=== PATIENT | male | born 1950 | race Caucasian/White ===

== ENCOUNTER 2017-12-19 16:16 | Emergency (ER) | payer MEDICARE, BC, OTHER ==
[~2017-12-19 16:16] MED LIST: Iopamidol 370 76% 100 ML VIAL ONE; Sodium Chloride 0.9% 1,000 ML BAG ONE; Sodium Chloride Irrig Solution 250 ML BOT ONE
[2017-12-19 16:40] LABS: #Basophils 0.1 thou/uL (0.0-0.2); #Eosinphils 0.1 thou/uL (0.0-0.7); #Lymphocytes 1.6 thou/uL (1.20-3.40); #Monocytes 0.6 thou/uL (0.11-0.59); %Basophils 1.1 % (0.0-1.0); %Eosinophils 1.3 % (0.0-10.0); %Lymphocytes 21.3 % (21.0-51.0); %Monocytes 8.5 % (0.0-10.0); %Neutrophils 67.9 % (42.0-75.0); Mean Corpuscular HGB CONC 34.7 g/dL (32.0-36.0); Mean Corpuscular Hemoglobin 33.2 pg (27.0-31.0); Mean Corpuscular Volume 95.6 fl (80.0-94.0); Mean Platelet Volume 9.1 fL (7.4-10.4); Platelet Count 162 thou/uL (130-400); RBC Distribution Width 11.9 % (11.5-14.5); Red Blood Cell (RBC) Count 4.83 mill/uL (4.70-6.10); White Blood Cell (WBC) Count 7.4 thou/uL (4.8-10.8)
[2017-12-19 16:44] LABS: INR-International Normal Ratio 0.9; PTT 23.5 SEC (22.9-36.1); Prothrombin Time 12.6 SEC (12.0-14.7)
[2017-12-19 16:55] LABS: ALT (SGPT) 20 U/L (8-55); AST (SGOT) 19 U/L (5-34); Albumin 4.2 g/dL (3.4-4.8); Alcohol Less than 10 mg/dL (Less than 10); Alkaline Phosphatase 72 U/L (40-150); Anion Gap 19 mmol/L (10-20); BUN (Urea Nitrogen) 18 mg/dL (8.4-25.7); Bilirubin, Total 0.5 mg/dL (0.2-1.2); Calc. Creatinine Clearance 0 mL/min (70-130); Calcium 9.6 mg/dL (7.8-10.44); Carbon Dioxide 20 mmol/L (23-31); Chloride 106 mmol/L (98-107); Estimated GFR-MDRD 77; Globulin 2.5 g/dL (2.4-3.5); Glucose 98 mg/dL (80-115); Lipase 10 U/L (8-78); Potassium 3.8 mmol/L (3.5-5.1); Protein, Total 6.7 g/dL (5.8-8.1); Sodium 141 mmol/L (136-145)
[2017-12-19] MEDS ORDERED: Lidocaine 2% w/Epinephrine 1:200K 20 ML VIAL ONE (18:39)
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
[2017-12-19] MEDS ORDERED: Cyclobenzaprine 10 MG TAB ONE (21:00)
[2017-12-19] MEDS ORDERED: Ibuprofen 800 MG TAB ONE (21:00)
[2017-12-19] MEDS ORDERED: Amoxicillin/Potassium Clav 875 MG TAB ONE (21:00)
[2017-12-19 21:11] LABS: Bilirubin Negative (Negative); Blood, Urine Trace (Negative); Clarity Clear (Clear); Glucose, Urine (Dipstick) Negative (Negative); Leukocyte Negative (Negative); Nitrite Negative (Negative); Protein, Urine (Dipstick) Negative (Neg-Trace); Specific Gravity, Urine 1.015 (1.005-1.030); Urobilinogen 0.2 mg/dL (0.2-1.0); pH, Urine 7.5 (5.0-9.0)
[2017-12-19 21:13] LABS: Bacteria/HPF Rare-Few HPF (None Seen); WBC/HPF 0-3 HPF (0-3)
== END 2017-12-19 21:20 | disposition home or self-care (01) ==
LOC: MADERS 16:16
DX: S01.01XA Laceration without foreign body of scalp, initial encounter (principal); S27.321A Contusion of lung, unilateral, initial encounter; S10.91XA Abrasion of unspecified part of neck, initial encounter; S40.212A Abrasion of left shoulder, initial encounter; S80.212A Abrasion, left knee, initial encounter; S80.211A Abrasion, right knee, initial encounter; S90.511A Abrasion, right ankle, initial encounter; S60.512A Abrasion of left hand, initial encounter; V63.5XXA Driver of heavy transport vehicle injured in collision with car, pick-up truck or van in traffic accident, initial encounter
CPT/HCPCS: 12005; 70450; 71260; 72125; 74177; 80053; 80307; 81003; 81015; 83690; 85025; 85610; 85730; 93005; 96360; 96361; G0390; J7050